=== PATIENT | female | born 1990 | race Caucasian/White ===

== ENCOUNTER 2018-02-24 05:05 | Inpatient (IN) | payer OTHER ==
[2018-02-24] MEDS: BUPIVACAINE HCL 0.25% 10 ML VIAL INFIL (05:45)
[2018-02-24] MEDS: LR 1,000 ML IV ×2 (05:45→11:59)
[2018-02-24 05:59] LABS: HEMATOCRIT 39.2 % (36.0-47.0); HEMOGLOBIN 13.4 g/dl (12.0-15.5); MEAN CORPUSCULAR HEMOGLOBIN 31.1 pg (27.0-33.0); MEAN CORPUSCULAR HGB CONC 34.2 g/dl (32.0-36.5); PLATELET COUNT, AUTOMATED 210 10^3/uL (150-450); RED BLOOD COUNT 4.31 10^6/uL (4.00-5.40); RED CELL DISTRIBUTION WIDTH 12.8 % (11.5-14.5); WHITE BLOOD COUNT 9.2 10^3/uL (4.0-10.0)
[2018-02-24] MEDS: AZITHROMYCIN INJ 500 MG, VIAL MATE ADAPTER 1 EACH in D5W 250 ML IV (06:28)
[2018-02-24] MEDS: ACETAMINOPHEN 650 MG SUPP PR (06:30)
[2018-02-24] MEDS ORDERED: LR 1,000 ML IV (06:45)
[2018-02-24] MEDS: BICITRA 30ML SOLN UDC PO (07:28)
[2018-02-24] MEDS ORDERED: MORPHINE PRES-FREE INJ 10 MG/10 ML VIAL (J2274) As Ordered (07:32)
[2018-02-24] MEDS ORDERED: NALOXONE INJ 0.4 MG/1 ML VIAL (J2310) IV ×2 (08:00)
[2018-02-24] MEDS ORDERED: ONDANSETRON 4MG/2ML VIAL (J2405) IV ×2 (08:00→10:00)
[2018-02-24] MEDS ORDERED: miSOPROStol 200 MCG TAB (S0191) As Ordered (08:17)
[2018-02-24 08:46] LABS: CORD GAS ABE V -2.2; CORD GAS HCO3 V 23.4 MEQ/L; CORD GAS O2 SAT V 51.2 %; CORD GAS PCO2 V 43.2 mmHg; CORD GAS PH V 7.351 UNITS; CORD GAS PO2 V 21.6 mmHg; CORD GAS SBC V 21.6 MEQ/L; CORD GAS TCO2 V 24.7 MEQ/L
[2018-02-24 08:47] LABS: CORD GAS ABE A -3.6; CORD GAS HCO3 A 23.2 MEQ/L; CORD GAS O2 SAT A 62.2 %; CORD GAS PCO2 A 48.7 mmHg; CORD GAS PH A 7.296 UNITS; CORD GAS PO2 A 27.4 mmHg; CORD GAS SBC A 20.7 MEQ/L; CORD GAS TCO2 A 24.7 MEQ/L
[2018-02-24] MEDS ORDERED: OXYTOCIN INJ 10 UNITS/ML VIAL (J2590) As Ordered ×6 (08:59)
[2018-02-24] MEDS: PRENATAL VITAMINS CHEWABLE TABLET PO (09:00)
[2018-02-24] MEDS ORDERED: KETOROLAC 60 MG/2 ML VIAL (J1885) As Ordered ×2 (09:02→10:13)
[2018-02-24] MEDS ORDERED: ANUSOL HC CREAM 30GM TOP (09:15)
[2018-02-24] MEDS: METHYLERGONOVINE MALEATE 0.2 MG/ML VIAL (J2210) IM (09:15)
[2018-02-24] MEDS ORDERED: OXYTOCIN INJ 10 UNITS/ML VIAL (J2590) IV (09:15)
[2018-02-24] MEDS: OXYTOCIN DRIP 30 UNITS in APPROPRIATE DILUENT 1 EA IV (09:15)
[2018-02-24] MEDS ORDERED: MOM 30ML SUSPENSION UDC PO (09:15)
[2018-02-24] MEDS ORDERED: DOCUSATE SODIUM 100 MG CAP PO (09:15)
[2018-02-24] MEDS ORDERED: fentaNYL 100 MCG/2 ML INJECTION (J3010) IV (10:00)
[2018-02-24] MEDS ORDERED: diphenhydrAMINE INJ 50MG/ML VIAL (J1200) IV (10:00)
[2018-02-24] MEDS ORDERED: NALBUPHINE HCL 10 MG/ML AMP (J2300) IV (10:00)
[2018-02-24] MEDS ORDERED: ONDANSETRON 4MG/2ML VIAL (J2405) As Ordered (10:13)
[2018-02-24] MEDS ORDERED: PHENYLephrine HCL 500 MCG/5 ML (100MCG/ML) SYRINGE (J2370) As Ordered (10:13)
[2018-02-24] MEDS: METOCLOPRAMIDE INJ 10MG/2ML VIAL (J2765) IV (11:21)
[2018-02-24] MEDS: RHOGAM 300 MCG (1500 IU) INJ (J2790) IM (11:49)
[2018-02-24] MEDS: MEASLES,MUMPS,RUBELLA VACCINE INJ (MMR-II) (90707) SC (11:49)
[2018-02-24] MEDS: NALBUPHINE HCL 10 MG/ML AMP (J2300) IV ×2 (13:33→21:00)
[2018-02-24] MEDS: KETOROLAC 30 MG/ML VIAL (J1885) IV ×2 (15:06→20:21)
[2018-02-24] MEDS: ADACEL/BOOSTRIX VACCINE (DIPHTH/PERTUSS/ACELL/TETANUS)0.5ML SYR (90715) IM (15:28)
[2018-02-24 17:16] LABS: BEDSIDE GLUCOSE 84 MG/DL (70-105)
[2018-02-24] MEDS: LACTATED RINGER'S 1000 ML IV (19:15)
[2018-02-25] MEDS: KETOROLAC 30 MG/ML VIAL (J1885) IV (03:27)
[2018-02-25 07:44] LABS: HEMATOCRIT 28.9 % (36.0-47.0); MEAN CORPUSCULAR HEMOGLOBIN 31.3 pg (27.0-33.0); MEAN CORPUSCULAR HGB CONC 33.2 g/dl (32.0-36.5); MEAN CORPUSCULAR VOLUME 94.1 fl (80.0-96.0); PLATELET COUNT, AUTOMATED 146 10^3/uL (150-450); RED BLOOD COUNT 3.07 10^6/uL (4.00-5.40); RED CELL DISTRIBUTION WIDTH 12.9 % (11.5-14.5); WHITE BLOOD COUNT 7.4 10^3/uL (4.0-10.0)
[2018-02-25 07:54] LABS: HEMOGLOBIN 9.6 g/dl (12.0-15.5)
[2018-02-25] MEDS: PRENATAL VITAMINS CHEWABLE TABLET PO (09:39)
[2018-02-25] MEDS: IBUPROFEN 800 MG TAB PO ×2 (12:02→18:53)
[2018-02-25] MEDS: PERCOCET 5MG/325MG TAB PO ×2 (12:11→20:53)
[2018-02-26] MEDS: IBUPROFEN 800 MG TAB PO ×3 (03:09→18:02)
[2018-02-26] MEDS: PRENATAL VITAMINS CHEWABLE TABLET PO (08:33)
[2018-02-26] MEDS: PERCOCET 5MG/325MG TAB PO ×2 (08:34→19:43)
[2018-02-27] MEDS: IBUPROFEN 800 MG TAB PO ×2 (02:59→11:12)
[2018-02-27] MEDS: PERCOCET 5MG/325MG TAB PO (04:22)
[2018-02-27] MEDS: PRENATAL VITAMINS CHEWABLE TABLET PO (08:23)
== END 2018-02-27 13:23 | disposition home or self-care (01) | DRG 766 ==
LOC: M LDI 05:05 → M OBS 10:39
PROVIDERS: Obstetrics & Gynecology
PROC: 10D00Z1 Extraction of Products of Conception, Low, Open Approach (ICD-10-PCS; principal; 2018-02-24 07:30)
DX: O34.211 Maternal care for low transverse scar from previous cesarean delivery (principal); Z37.0 Single live birth; N73.6 Female pelvic peritoneal adhesions (postinfective); Z3A.38 38 weeks gestation of pregnancy

== ENCOUNTER 2018-06-16 07:09 | Day surgery (SDC) | payer OTHER ==
[~2018-06-16 07:09] MED LIST: LIDOCAINE 1% MDV 20ML VIAL SQ
[2018-06-16] MEDS: LR 1,000 ML IV (07:40)
[2018-06-16 08:04] LABS: HEMATOCRIT 44.6 % (36.0-47.0); HEMOGLOBIN 15.1 g/dl (12.0-15.5); MEAN CORPUSCULAR HEMOGLOBIN 30.7 pg (27.0-33.0); MEAN CORPUSCULAR HGB CONC 33.9 g/dl (32.0-36.5); MEAN CORPUSCULAR VOLUME 90.7 fl (80.0-96.0); PLATELET COUNT, AUTOMATED 248 10^3/uL (150-450); RED BLOOD COUNT 4.92 10^6/uL (4.00-5.40); RED CELL DISTRIBUTION WIDTH 13.4 % (11.5-14.5); WHITE BLOOD COUNT 6.3 10^3/uL (4.0-10.0)
[2018-06-16] MEDS: ACETAMINOPHEN 650 MG SUPP As Ordered (08:10)
[2018-06-16] MEDS ORDERED: PROPOFOL 200 MG/20 ML VIAL As Ordered (08:11)
[2018-06-16] MEDS ORDERED: dexameTHASONE 4 MG/ML 1ML VIAL (J1100) As Ordered (08:11)
[2018-06-16] MEDS ORDERED: ROCURONIUM BROMIDE 50 MG/5 ML VIAL As Ordered (08:11)
[2018-06-16] MEDS ORDERED: LIDOCAINE 2% INJ 100 MG/5 ML SDV (FOR ANES.) As Ordered (08:11)
[2018-06-16] MEDS ORDERED: ONDANSETRON 4MG/2ML VIAL (J2405) As Ordered (08:11)
[2018-06-16] MEDS ORDERED: MIDAZOLAM INJ 2 MG/2 ML VIAL (J2250) As Ordered (08:12)
[2018-06-16] MEDS ORDERED: fentaNYL 100 MCG/2 ML INJECTION (J3010) As Ordered (08:12)
[2018-06-16 08:17] LABS: ANION GAP 7 MEQ/L (8-16); BLOOD UREA NITROGEN 12 MG/DL (7-18); CARBON DIOXIDE LEVEL 28 MEQ/L (21-32); CHLORIDE LEVEL 106 MEQ/L (98-107); GLOMERULAR FILTRATION RATE > 60.0 (>60); GLUCOSE, FASTING 92 MG/DL (70-100); HCG, SERUM QUANTITATIVE < 1.0 MIU/ML; POTASSIUM SERUM 4.2 MEQ/L (3.5-5.1); SODIUM LEVEL 141 MEQ/L (136-145)
[2018-06-16] MEDS: ceFAZolin SOD 1 GM in D5W MINI-BAG PLUS 50 ML IV (08:45)
[2018-06-16] MEDS ORDERED: KETOROLAC 60 MG/2 ML VIAL (J1885) As Ordered (08:49)
[2018-06-16] MEDS: ACETAMINOPHEN 650 MG SUPP PR (08:50)
[2018-06-16] MEDS: BUPIVACAINE HCL 0.5% 30 ML VIAL As Ordered (09:00)
[2018-06-16] MEDS ORDERED: GLYCOPYRROLATE INJ 0.2 MG/ML 2 ML VIAL As Ordered (09:08)
[2018-06-16] MEDS ORDERED: NEOSTIGMINE 10 MG/10 ML VIAL (J2710) As Ordered (09:08)
[2018-06-16] MEDS ORDERED: HYDROmorphone HCL 2 MG/ML 1ML VIAL (J1170) As Ordered (09:09)
[2018-06-16] MEDS ORDERED: METOCLOPRAMIDE INJ 10MG/2ML VIAL (J2765) As Ordered (09:14)
[2018-06-16] MEDS ORDERED: oxyCODONE 5MG TAB As Ordered (10:04)
[2018-06-16] MEDS: oxyCODONE 5MG TAB PO (10:10)
[2018-06-16] MEDS ORDERED: LR 1,000 ML IV (10:15)
[2018-06-16] MEDS ORDERED: fentaNYL 100 MCG/2 ML INJECTION (J3010) IV (10:15)
[2018-06-16] MEDS ORDERED: ONDANSETRON 4MG/2ML VIAL (J2405) IV (10:15)
[2018-06-16] MEDS ORDERED: KETOROLAC 30 MG/ML VIAL (J1885) IV (15:00)
== END 2018-06-16 12:20 | disposition home or self-care (01) ==
LOC: M SDC 07:09
DX: Z30.2 Encounter for sterilization (principal); N73.9 Female pelvic inflammatory disease, unspecified; G43.909 Migraine, unspecified, not intractable, without status migrainosus
CPT/HCPCS: 58671

== ENCOUNTER → 2018-06-22 | Outpatient (REF) | payer OTHER | LOC: M SFHCLERA 14:27 | DX: J02.9 Acute pharyngitis, unspecified (principal) ==